=== PATIENT | male | born 1960 | race Caucasian/White ===

== ENCOUNTER 2017-02-14 04:54 | Inpatient (IN) | payer MEDICAID, OTHER ==
[~2017-02-14] VITALS: Ht 185.4 cm; Wt 103.5 kg
[2017-02-14 06:46] LABS: Basophils # (auto) 0 uL; Basophils % (auto) 0.4 % (0.0-2.0); DEFINITIVE VIEW TRANSMISSION; Eosinophils # (auto) 0.2 uL; Eosinophils % (auto) 1.9 % (0.0-7.0); Hematocrit 51.8 % (41.0-53.0); Hemoglobin 17.9 g/dL (13.5-17.5); Lymphocytes # (auto) 1.9 uL; Lymphocytes % (auto) 18.1 % (10.0-50.0); Mean Corpuscular Hgb Conc. 34.5 g/dL (32.0-36.0); Mean Corpuscular Volume 84.1 fL (80.0-100.0); Monocytes # (auto) 0.7 uL; Monocytes % (auto) 7.1 % (0.0-12.0); Neutrophils # (auto) 7.6 uL; Neutrophils % (auto) 72.5 % (37.0-80.0); Platelet Count (auto) 247 10^3/uL (140-450); White Blood Cell 10.5 10^3/uL (4.4-10.8)
[2017-02-14 06:53] LABS: Albumin 3.8 g/dL (3.4-5.0); BUN/Creatinine Ratio 13.9; Bilirubin, Total 0.7 mg/dL (0.2-1.0); Calcium 8.6 mg/dL (8.5-10.1); Potassium 4.2 mmol/L (3.5-5.1); Total Protein 7.6 g/dL (6.4-8.2)
[2017-02-14] MEDS ORDERED: cefTRIAXone 1GM/50ML D5W 50 ML IV ONE (10:45)
[2017-02-14] MEDS ORDERED: PIPERACILLIN-TAZOB 3.375GM 100 ML IV ONE (11:30)
[2017-02-14] MEDS ORDERED: KETOROLAC TROMETH 30 MG/ML 1ML VIAL IV ONE (11:30)
[2017-02-14] MEDS ORDERED: ONDANSETRON HCL 4 MG/2 ML VIAL IV PRN (13:30)
[2017-02-14] MEDS ORDERED: ACETAMINOPHEN 325 MG TAB PO PRN (13:30)
[2017-02-14] MEDS ORDERED: HYDROcodone-ACET 5/325MG TAB PO PRN (13:30)
[2017-02-14] MEDS ORDERED: DOCUSATE SOD 100 MG CAP PO PRN (13:30)
[2017-02-14] MEDS ORDERED: VANCOMYCIN PER PHARMACY 0 MG IV SCH (13:30)
[2017-02-14] MEDS: MULTIPLE VITAMIN TAB PO SCH (13:44)
[2017-02-14] MEDS: SODIUM CHLOR 0.9% PF (SALINE LOCK) 10ML VIAL IV SCH ×2 (13:44→21:41)
[2017-02-14] MEDS: ZINC SULFATE 220 MG CAP PO SCH (13:44)
[2017-02-14] MEDS: ASCORBIC ACID 500 MG TAB PO SCH ×2 (13:44→21:41)
[2017-02-14 17:30] VITALS: BP 147/93
[2017-02-14] MEDS: VANCOMYCIN 1GM/250ML D5W 250 ML IV SCH ×2 (18:26→22:35)
[2017-02-14 20:00] VITALS: BP 134/94
[2017-02-14 22:00] VITALS: BP_SYST 134; BP_SYST 163; BP_DIAS 73; BP_DIAS 94
[2017-02-14] MEDS: TEMAZEPAM 15 MG CAP PO PRN (22:50)
[2017-02-15] VITALS (7 sets, daily range): BP systolic 120–147; BP diastolic 73–91
[2017-02-15] MEDS: MORPHINE SULF INJ 2 MG/ML SYRINGE 1ML IV PRN ×4 (02:12→23:36)
[2017-02-15] MEDS: SODIUM CHLOR 0.9% PF (SALINE LOCK) 10ML VIAL IV SCH ×3 (06:00→23:36)
[2017-02-15] MEDS: VANCOMYCIN 1GM/250ML D5W 250 ML IV SCH ×3 (06:15→23:37)
[2017-02-15 07:16] LABS: Basophils # (auto) 0 uL; Basophils % (auto) 0.5 % (0.0-2.0); Eosinophils # (auto) 0.2 uL; Hematocrit 48.1 % (41.0-53.0); Hemoglobin 16.6 g/dL (13.5-17.5); Lymphocytes # (auto) 1.7 uL; Lymphocytes % (auto) 17.7 % (10.0-50.0); Mean Corpuscular Hemoglobin 29.1 pg (28.0-32.0); Mean Corpuscular Hgb Conc. 34.6 g/dL (32.0-36.0); Mean Corpuscular Volume 84.3 fL (80.0-100.0); Monocytes # (auto) 0.6 uL; Monocytes % (auto) 6.7 % (0.0-12.0); Neutrophils # (auto) 6.9 uL; Neutrophils % (auto) 73.1 % (37.0-80.0); Platelet Count (auto) 232 10^3/uL (140-450); Red Cell Distribution Width 14.4 % (11.6-16.0); White Blood Cell 9.4 10^3/uL (4.4-10.8)
[2017-02-15 07:42] LABS: Albumin 3.3 g/dL (3.4-5.0); BUN/Creatinine Ratio 16.4; Bilirubin, Total 0.7 mg/dL (0.2-1.0); Potassium 3.9 mmol/L (3.5-5.1); Total Protein 6.8 g/dL (6.4-8.2)
[2017-02-15] MEDS: cefTRIAXone 1GM/50ML D5W 50 ML IV SCH (08:20)
[2017-02-15] MEDS: MULTIPLE VITAMIN TAB PO SCH (09:44)
[2017-02-15] MEDS: ASCORBIC ACID 500 MG TAB PO SCH ×2 (09:44→23:37)
[2017-02-15] MEDS: ZINC SULFATE 220 MG CAP PO SCH (09:44)
[2017-02-15 13:56] LABS: Urine Bilirubin Negative (Negative); Urine Blood Negative /uL (Negative); Urine Color Yellow (Yellow); Urine Glucose Normal (Normal); Urine Ketone Negative (Negative); Urine Mucus FEW (None Seen); Urine Nitrite Negative (Negative); Urine RBC <1 /hpf (0 - 3); Urine Squamous Epithelial Cell FEW /hpf (<5); Urine Urobilinogen Normal (Negative); Urine pH 6.5 (5.0-8.0)
[2017-02-16] MEDS: TEMAZEPAM 15 MG CAP PO PRN ×2 (00:38→22:40)
[2017-02-16 05:00] VITALS: BP 134/77
[2017-02-16 05:49] LABS: Basophils # (auto) 0 uL; Basophils % (auto) 0.4 % (0.0-2.0); Eosinophils # (auto) 0.2 uL; Eosinophils % (auto) 2.3 % (0.0-7.0); Hematocrit 49.4 % (41.0-53.0); Hemoglobin 17.2 g/dL (13.5-17.5); Lymphocytes # (auto) 1.5 uL; Lymphocytes % (auto) 18.3 % (10.0-50.0); Mean Corpuscular Hemoglobin 29.2 pg (28.0-32.0); Mean Corpuscular Hgb Conc. 34.9 g/dL (32.0-36.0); Mean Corpuscular Volume 83.8 fL (80.0-100.0); Mean Platelet Volume 7.8 fL (7.4-10.4); Monocytes # (auto) 0.6 uL; Neutrophils # (auto) 5.7 uL; Platelet Count (auto) 243 10^3/uL (140-450)
[2017-02-16 06:06] LABS: Albumin 3.2 g/dL (3.4-5.0); BUN/Creatinine Ratio 15.6; Calcium 8.4 mg/dL (8.5-10.1); Potassium 4.2 mmol/L (3.5-5.1)
[2017-02-16 06:09] LABS: Bilirubin, Total 0.5 mg/dL (0.2-1.0)
[2017-02-16] MEDS: VANCOMYCIN 1GM/250ML D5W 250 ML IV SCH ×3 (06:18→22:35)
[2017-02-16] MEDS: SODIUM CHLOR 0.9% PF (SALINE LOCK) 10ML VIAL IV SCH ×3 (06:18→21:46)
[2017-02-16 08:04] VITALS: BP 147/97
[2017-02-16] MEDS: MULTIPLE VITAMIN TAB PO SCH (09:03)
[2017-02-16] MEDS: cefTRIAXone 1GM/50ML D5W 50 ML IV SCH (09:04)
[2017-02-16] MEDS: ASCORBIC ACID 500 MG TAB PO SCH ×2 (09:04→21:45)
[2017-02-16] MEDS: ZINC SULFATE 220 MG CAP PO SCH (09:04)
[2017-02-16 11:43] VITALS: BP 161/89
[2017-02-16] MEDS ORDERED: LEVOFLOXACIN 500MG 100 ML IV ONE (13:00)
[2017-02-16 16:26] VITALS: BP 148/87
[2017-02-16] MEDS: BOOST PLUS 8 ounce PO SCH (18:00)
[2017-02-16 21:45] VITALS: BP 142/89
[2017-02-16] MEDS: MORPHINE SULF INJ 2 MG/ML SYRINGE 1ML IV PRN (21:46)
[2017-02-17 05:20] VITALS: BP 132/83
[2017-02-17] MEDS: SODIUM CHLOR 0.9% PF (SALINE LOCK) 10ML VIAL IV SCH ×3 (06:39→22:42)
[2017-02-17] MEDS: VANCOMYCIN 1GM/250ML D5W 250 ML IV SCH ×2 (06:39→15:15)
[2017-02-17 07:03] LABS: Basophils # (auto) 0 uL; Basophils % (auto) 0.4 % (0.0-2.0); DEFINITIVE VIEW TRANSMISSION; Eosinophils # (auto) 0.2 uL; Eosinophils % (auto) 2.1 % (0.0-7.0); Hematocrit 52.3 % (41.0-53.0); Hemoglobin 18.1 g/dL (13.5-17.5); Lymphocytes # (auto) 1.6 uL; Lymphocytes % (auto) 18.6 % (10.0-50.0); Mean Corpuscular Hemoglobin 29.3 pg (28.0-32.0); Mean Corpuscular Hgb Conc. 34.6 g/dL (32.0-36.0); Mean Corpuscular Volume 84.8 fL (80.0-100.0); Mean Platelet Volume 7.7 fL (7.4-10.4); Monocytes # (auto) 0.6 uL; Monocytes % (auto) 7.1 % (0.0-12.0); Neutrophils # (auto) 6.3 uL; Neutrophils % (auto) 71.8 % (37.0-80.0); Platelet Count (auto) 250 10^3/uL (140-450); Red Cell Distribution Width 14.5 % (11.6-16.0); White Blood Cell 8.8 10^3/uL (4.4-10.8)
[2017-02-17 07:18] LABS: Albumin 3.3 g/dL (3.4-5.0); BUN/Creatinine Ratio 17.3; Calcium 8.6 mg/dL (8.5-10.1); Potassium 4.5 mmol/L (3.5-5.1)
[2017-02-17 07:25] LABS: Bilirubin, Total 0.5 mg/dL (0.2-1.0); Total Protein 7.3 g/dL (6.4-8.2)
[2017-02-17] MEDS: BOOST PLUS 8 ounce PO SCH ×3 (08:00→18:00)
[2017-02-17 08:02] VITALS: BP 145/82
[2017-02-17] MEDS: ZINC SULFATE 220 MG CAP PO SCH (09:10)
[2017-02-17] MEDS: MULTIPLE VITAMIN TAB PO SCH (09:10)
[2017-02-17] MEDS: ASCORBIC ACID 500 MG TAB PO SCH ×2 (09:10→22:20)
[2017-02-17] MEDS: MORPHINE SULF INJ 2 MG/ML SYRINGE 1ML IV PRN ×2 (09:21→22:39)
[2017-02-17] MEDS ORDERED: LEVOFLOXACIN 500MG 100 ML IV SCH (10:00)
[2017-02-17 11:23] VITALS: BP 136/81
[2017-02-17 15:59] VITALS: BP 151/77
[2017-02-17 20:38] VITALS: BP 151/83
[2017-02-17] MEDS: SULFAMETHOX W/TRIMETH(800/160MG) DS TAB PO SCH (22:21)
[2017-02-17] MEDS: TEMAZEPAM 15 MG CAP PO PRN (22:34)
[2017-02-18 05:01] VITALS: BP 142/91
[2017-02-18] MEDS: SODIUM CHLOR 0.9% PF (SALINE LOCK) 10ML VIAL IV SCH ×3 (06:25→21:46)
[2017-02-18 09:14] VITALS: BP 135/88
[2017-02-18] MEDS: MULTIPLE VITAMIN TAB PO SCH (10:35)
[2017-02-18] MEDS: BOOST PLUS 8 ounce PO SCH ×4 (10:35→21:47)
[2017-02-18] MEDS: SULFAMETHOX W/TRIMETH(800/160MG) DS TAB PO SCH ×2 (10:35→21:46)
[2017-02-18] MEDS: ZINC SULFATE 220 MG CAP PO SCH (10:35)
[2017-02-18] MEDS: ASCORBIC ACID 500 MG TAB PO SCH ×2 (10:35→21:46)
[2017-02-18] MEDS: MORPHINE SULF INJ 2 MG/ML SYRINGE 1ML IV PRN ×3 (10:43→21:47)
[2017-02-18 13:00] VITALS: BP 140/84
[2017-02-18 16:56] VITALS: BP 134/78
[2017-02-18 22:00] VITALS: BP 141/86
[2017-02-18] MEDS: TEMAZEPAM 15 MG CAP PO PRN (22:51)
[2017-02-19] VITALS (7 sets, daily range): BP systolic 116–153; BP diastolic 82–94
[2017-02-19 06:14] LABS: Basophils # (auto) 0 uL; Basophils % (auto) 0.4 % (0.0-2.0); DEFINITIVE VIEW TRANSMISSION; Eosinophils # (auto) 0.2 uL; Eosinophils % (auto) 2.3 % (0.0-7.0); Hematocrit 51.9 % (41.0-53.0); Hemoglobin 17.8 g/dL (13.5-17.5); Lymphocytes # (auto) 1.9 uL; Lymphocytes % (auto) 19.9 % (10.0-50.0); Mean Corpuscular Hemoglobin 29.1 pg (28.0-32.0); Mean Corpuscular Hgb Conc. 34.3 g/dL (32.0-36.0); Mean Corpuscular Volume 84.8 fL (80.0-100.0); Monocytes # (auto) 0.8 uL; Monocytes % (auto) 8.3 % (0.0-12.0); Neutrophils # (auto) 6.5 uL; Neutrophils % (auto) 69.1 % (37.0-80.0); Platelet Count (auto) 298 10^3/uL (140-450); White Blood Cell 9.3 10^3/uL (4.4-10.8)
[2017-02-19] MEDS: SODIUM CHLOR 0.9% PF (SALINE LOCK) 10ML VIAL IV SCH ×3 (06:24→21:30)
[2017-02-19] MEDS: ZINC SULFATE 220 MG CAP PO SCH (09:24)
[2017-02-19] MEDS: MULTIPLE VITAMIN TAB PO SCH (09:24)
[2017-02-19] MEDS: SULFAMETHOX W/TRIMETH(800/160MG) DS TAB PO SCH (09:24)
[2017-02-19] MEDS: ASCORBIC ACID 500 MG TAB PO SCH ×2 (09:25→21:31)
[2017-02-19] MEDS: BOOST PLUS 8 ounce PO SCH ×2 (12:17→17:52)
[2017-02-19] MEDS: CLINDAMYCIN HCL 150 MG CAP PO SCH (21:30)
[2017-02-20] MEDS: MORPHINE SULF INJ 2 MG/ML SYRINGE 1ML IV PRN (00:27)
[2017-02-20] MEDS: TEMAZEPAM 15 MG CAP PO PRN (00:27)
[2017-02-20 05:00] VITALS: BP 117/67
[2017-02-20] MEDS: SODIUM CHLOR 0.9% PF (SALINE LOCK) 10ML VIAL IV SCH (06:00)
[2017-02-20] MEDS: CLINDAMYCIN HCL 150 MG CAP PO SCH (06:39)
[2017-02-20 08:00] VITALS: BP 177/97
[2017-02-20 09:00] VITALS: BP 177/97
[2017-02-20] MEDS ORDERED: cloNIDine HCL 0.1 MG TAB PO PRN (10:00)
[2017-02-20] MEDS: ZINC SULFATE 220 MG CAP PO SCH (10:11)
[2017-02-20] MEDS: BOOST PLUS 8 ounce PO SCH (10:12)
[2017-02-20] MEDS: ASCORBIC ACID 500 MG TAB PO SCH (10:12)
[2017-02-20] MEDS: MULTIPLE VITAMIN TAB PO SCH (10:12)
[2017-02-20 11:43] VITALS: BP 142/90
== END 2017-02-20 14:00 | disposition home or self-care (01) | DRG 383 ==
LOC: ER 04:54 → OVERFLOW 04:55 → TELE-E-ADS 15:23 → WEST WING 17:23
PROVIDERS: ADMIT Internal Medicine; ATTEND Internal Medicine Pulmonary Disease
DX: L03.113 Cellulitis of right upper limb (principal); E44.0 Moderate protein-calorie malnutrition; E88.09 Other disorders of plasma-protein metabolism, not elsewhere classified; D75.1 Secondary polycythemia; F17.210 Nicotine dependence, cigarettes, uncomplicated; B95.62 Methicillin resistant Staphylococcus aureus infection as the cause of diseases classified elsewhere; Z83.3 Family history of diabetes mellitus; F10.10 Alcohol abuse, uncomplicated; Z80.9 Family history of malignant neoplasm, unspecified; Z68.30 Body mass index [BMI] 30.0-30.9, adult
CPT/HCPCS: 36415; 73200; 76881; 80053; 80202; 81001; 83605; 85025; 87070; 87077; 87086; 87186; 93306; 96365; 96367; 96375; J0696; J1885; J1956; J2543

== ENCOUNTER 2018-06-08 21:57 | Emergency (ER) | payer MEDICAID ==
[~2018-06-08] VITALS: Ht 185.4 cm; Wt 102.1 kg
[2018-06-08 22:15] VITALS: BP 158/97
== END 2018-06-09 02:13 | disposition left against medical advice (07) ==
LOC: ER 22:41
DX: M54.5 Low back pain (principal); Z53.21 Procedure and treatment not carried out due to patient leaving prior to being seen by health care provider

== ENCOUNTER 2018-10-22 09:44 | Emergency (ER) | payer MEDICAID ==
[~2018-10-22] VITALS: Ht 182.9 cm; Wt 90.7 kg
[2018-10-22 10:08] VITALS: BP 134/94
== END 2018-10-22 11:02 | disposition left against medical advice (07) ==
LOC: ER 09:44
DX: S61.212A Laceration without foreign body of right middle finger without damage to nail, initial encounter (principal); F17.210 Nicotine dependence, cigarettes, uncomplicated; Z53.29 Procedure and treatment not carried out because of patient's decision for other reasons; Z85.46 Personal history of malignant neoplasm of prostate; W31.89XA Contact with other specified machinery, initial encounter; Y93.89 Activity, other specified; Y99.8 Other external cause status; Y92.89 Other specified places as the place of occurrence of the external cause

== ENCOUNTER 2020-07-19 22:31 | Emergency (ER) | payer MEDICAID ==
[~2020-07-19] VITALS: Ht 185.4 cm; Wt 108.9 kg
[2020-07-19 22:35] VITALS: BP 129/83
[2020-07-19 23:13] LABS: Basophils # (auto) 0.1 10 ^3/uL (0-0.2); Basophils % (auto) 0.5 % (0.0-2.0); Eosinophils # (auto) 0.3 10 ^3/uL (0-0.8); Eosinophils % (auto) 2.7 % (0.0-7.0); Hematocrit 44.8 % (41.0-53.0); Hemoglobin 15.8 g/dL (13.5-17.5); Lymphocytes # (auto) 1.1 10 ^3/uL (0.4-5.4); Mean Corpuscular Hemoglobin 30.3 pg (28.0-32.0); Mean Corpuscular Hgb Conc. 35.3 g/dL (32.0-36.0); Mean Corpuscular Volume 85.9 fL (80.0-100.0); Monocytes # (auto) 0.8 10 ^3/uL (0-1.3); Monocytes % (auto) 7.8 % (0.0-12.0); Neutrophils # (auto) 8.4 10 ^3/uL (1.6-8.6); Platelet Count (auto) 294 10^3/uL (140-450); Red Blood Cells 5.22 10^6/uL (4.5-5.90); Red Cell Distribution Width 13.7 % (11.8-14.3); White Blood Cell 10.6 10^3/uL (4.4-10.8)
[2020-07-19 23:32] LABS: INR 0.92 (0.9-1.15); Partial Thromboplastin Time 26.8 sec (23.0-31.2)
[2020-07-19 23:39] LABS: Albumin 3.9 g/dL (3.4-5.0); Anion Gap 4 (5-15); Blood Urea Nitrogen 14 mg/dL (7-18); Calcium 8.8 mg/dL (8.5-10.1); Carbon Dioxide 32 mmol/L (21-32); Chloride 101 mmol/L (98-107); Glucose 103 mg/dL (74-106); Potassium 4.5 mmol/L (3.5-5.1); Sodium 137 mmol/L (136-145)
[2020-07-19 23:46] LABS: Alanine Aminotransferase 34 U/L (16-61); Alkaline Phosphatase 76 U/L (45-117); Aspartate Aminotransferase 24 U/L (15-37); BUN/Creatinine Ratio 18.2; Bilirubin, Total 0.6 mg/dL (0.2-1.0); GFR African American 133 mL/min; GFR Non-African American 110 mL/min; Total Protein 7.3 g/dL (6.4-8.2)
== END 2020-07-20 00:29 | disposition left against medical advice (07) ==
LOC: ER 22:31
DX: R07.89 Other chest pain (principal); Z53.21 Procedure and treatment not carried out due to patient leaving prior to being seen by health care provider
CPT/HCPCS: 36415; 80053; 83880; 84484; 85025; 85379; 85610; 85730

== ENCOUNTER 2020-07-20 17:08 | Emergency (ER) | payer MEDICAID ==
[~2020-07-20] VITALS: Ht 185.4 cm; Wt 106.6 kg
[2020-07-20 17:14] VITALS: BP 133/86
[2020-07-20 17:47] LABS: Basophils # (auto) 0.1 10 ^3/uL (0-0.2); Basophils % (auto) 1.1 % (0.0-2.0); Eosinophils # (auto) 0.4 10 ^3/uL (0-0.8); Eosinophils % (auto) 5.5 % (0.0-7.0); Hematocrit 43.1 % (41.0-53.0); Hemoglobin 14.9 g/dL (13.5-17.5); Lymphocytes # (auto) 1.2 10 ^3/uL (0.4-5.4); Mean Corpuscular Hemoglobin 29.8 pg (28.0-32.0); Mean Corpuscular Hgb Conc. 34.6 g/dL (32.0-36.0); Mean Corpuscular Volume 85.9 fL (80.0-100.0); Monocytes # (auto) 0.5 10 ^3/uL (0-1.3); Monocytes % (auto) 7.1 % (0.0-12.0); Neutrophils # (auto) 4.6 10 ^3/uL (1.6-8.6); Neutrophils % (auto) 68.3 % (37.0-80.0); Nucleated Red Blood Cells % 0.2 %; Platelet Count (auto) 278 10^3/uL (140-450); Red Blood Cells 5.02 10^6/uL (4.5-5.90); Red Cell Distribution Width 13.2 % (11.8-14.3); White Blood Cell 6.7 10^3/uL (4.4-10.8)
[2020-07-20 18:03] LABS: Potassium 4.2 mmol/L (3.5-5.1)
[2020-07-20 18:04] LABS: Albumin 3.6 g/dL (3.4-5.0); BUN/Creatinine Ratio 17.4; Calcium 8.8 mg/dL (8.5-10.1)
[2020-07-20 18:06] LABS: Bilirubin, Total 0.6 mg/dL (0.2-1.0)
== END 2020-07-20 19:40 | disposition left against medical advice (07) ==
LOC: ER 17:08
DX: R07.89 Other chest pain (principal); Z53.21 Procedure and treatment not carried out due to patient leaving prior to being seen by health care provider
CPT/HCPCS: 36415; 71046; 74176; 80053; 85025; 93005